=== PATIENT | male | born 1980 | race Caucasian/White ===

== ENCOUNTER → 2016-05-20 | Outpatient (CLI) | payer BC ==
[~2016-05-20] MED LIST: ALLOPURINOL100 MG PO; ANAPROX DS550 MG PO; FLEXERIL10 MG PO; HYDROCODONE BIT1 T11 PO; INDOMETHACIN25 M1 PO; KEFLEX500 MG PO; METFORMIN500 MG PO; MOTRIN800 MG PO; Motrin,Rufen400 MG PO; NKHM; VICODIN 500 MG-1 TAB PO
== END | disposition home or self-care (01) ==
LOC: ORTHO 02:51
DX: M25.561 Pain in right knee (principal)

== ENCOUNTER → 2017-02-25 | Outpatient (CLI) | payer BC | END | disposition home or self-care (01) | LOC: LAB 10:54 | DX: R79.89 Other specified abnormal findings of blood chemistry (principal); R53.83 Other fatigue ==

== ENCOUNTER 2017-08-23 21:15 | Emergency (ER) | payer BC ==
[~2017-08-23] VITALS: Wt 181.4 kg
[2017-08-23] MEDS ORDERED: CIPRO500 MG PO (22:20)
== END 2017-08-23 22:48 | disposition home or self-care (01) ==
LOC: ED 21:15
DX: S91.312A Laceration without foreign body, left foot, initial encounter (principal); I10 Essential (primary) hypertension; M10.9 Gout, unspecified; Z90.89 Acquired absence of other organs; Z79.899 Other long term (current) drug therapy; Z91.013 Allergy to seafood; W25.XXXA Contact with sharp glass, initial encounter; Y93.89 Activity, other specified; Y92.89 Other specified places as the place of occurrence of the external cause; Y99.9 Unspecified external cause status

== ENCOUNTER 2017-12-12 00:30 | Emergency (ER) | payer BC ==
[~2017-12-12] VITALS: Ht 172.7 cm; Wt 136.1 kg
[~2017-12-12 00:30] MED LIST changes: +CIPRO500 MG PO
== END 2017-12-12 03:12 | disposition home or self-care (01) ==
LOC: ED 00:30
DX: R07.81 Pleurodynia (principal); I10 Essential (primary) hypertension; Z91.013 Allergy to seafood; Z79.2 Long term (current) use of antibiotics; Z79.84 Long term (current) use of oral hypoglycemic drugs; Z79.899 Other long term (current) drug therapy; Z98.890 Other specified postprocedural states; V89.2XXA Person injured in unspecified motor-vehicle accident, traffic, initial encounter; Y93.I9 Activity, other involving external motion; Y92.488 Other paved roadways as the place of occurrence of the external cause; Y99.8 Other external cause status

== ENCOUNTER → 2018-05-23 | Outpatient (CLI) | payer OTHER ==
--- NOTE | ~2018-05-23 | EKG ---
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
== END | disposition home or self-care (01) ==
LOC: CARD 13:00
DX: Z01.810 Encounter for preprocedural cardiovascular examination (principal)

== ENCOUNTER → 2020-04-29 | Outpatient (CLI) | payer OTHER ==
[2020-04-29 11:09] LABS: BASO % 0.4 % (0.0-1.0); EOS # 0.1 10*3/uL (0.0-0.4); EOS % 1.3 % (1.0-4.0); HEMATOCRIT 45.9 % (42.0-52.0); LYMPH # 1.8 10*3/uL (1.3-4.4); LYMPH % 23.8 % (27.0-41.0); MEAN CELL VOLUME 89.5 fl (80.0-94.0); MEAN CORPUSCULAR HGB 29.6 pg (27.0-31.0); MEAN CORPUSCULAR HGB CONC 33.1 g/dl (33.0-37.0); MEAN PLATELET VOLUME 10.5 fl (9.6-12.3); MONO # 0.5 10*3/uL (0.1-1.0); MONO % 6.8 % (3.0-9.0); NEUT # 5.1 10*3/uL (2.3-7.9); PLATELET COUNT AUTOMATED 190 10*3/uL (130-400); RED BLOOD COUNT 5.13 10*6/uL (4.50-5.90); RED CELL DISTRI WIDTH 12.6 % (0-14.5); RETICULOCYTE % 1.77 % (0.50-2.50); WHITE BLOOD COUNT 7.6 10*3/uL (4.8-10.8)
[2020-04-29 11:15] LABS: BILIRUBIN Negative (Negative); BLOOD Negative (Negative); CLARITY Clear (Clear); COLOR Yellow (Yellow); GLUCOSE 3+ (Negative); KETONE Negative (Negative); LEUKO ESTERASE Negative (Negative); NITRITE Negative (Negative); SPECIFIC GRAVITY >= 1.030 (1.001-1.030); UROBILINOGEN 0.2 E.U./dl (0.0-1.0)
[2020-04-29 11:38] LABS: EPITHELIAL CELLS 0-2; RBC 0-2 rbc/hpf (0-2); WBC 0-2 wbc/hpf (0-5)
[2020-04-29 11:50] LABS: ALBUMIN 4.1 gm/dl (3.1-4.5); ALKALINE PHOSPHATASE 70 U/L (45-117); BUN 13 mg/dl (7-24); CHLORIDE 102 mmol/L (98-107); CHOLESTEROL 169 mg/dL (<200); CPK 84 U/L (39-308); CREATININE 0.93 mg/dL (0.70-1.30); GAMMA GLUTAMYL TRANSPEPTIDASE 32 U/L (15-85); HDL CHOLESTEROL 35 mg/dl (40-60); IRON 131 ug/dL (65-175); LDL CHOLESTEROL 102 mg/dL (9-159); POTASSIUM 3.9 mmol/L (3.5-5.1); SGOT/AST 18 IU/L (3-35); SGPT/ALT 47 U/L (12-78); SODIUM 138 mmol/L (136-145); TOTAL IRON BINDING CAPACITY 384 ug/dl (250-450); TOTAL PROTEIN 8.4 gm/dL (6.4-8.2); TRIGLYCERIDES 159 mg/dl (<150); URIC ACID 6.2 mg/dL (3.5-7.2); VLDL CHOLESTEROL 32 mg/dL (6-40)
[2020-04-29 12:23] LABS: VITAMIN D, 25-HYDROXY 22.3 ng/mL (30-100)
[2020-04-29 12:24] LABS: FERRITIN 184.3 ng/mL (22.0-322.0)
== END | disposition home or self-care (01) ==
LOC: LAB 10:45
PROVIDERS: ATTEND Family Medicine
DX: E55.9 Vitamin D deficiency, unspecified (principal); E11.9 Type 2 diabetes mellitus without complications; R79.89 Other specified abnormal findings of blood chemistry; R53.83 Other fatigue; E78.5 Hyperlipidemia, unspecified; R74.8 Abnormal levels of other serum enzymes

== ENCOUNTER → 2021-07-16 | Outpatient (CLI) | payer OTHER ==
[2021-07-16 13:42] LABS: BASO % 0.3 % (0.0-1.0); EOS # 0.1 10*3/uL (0.0-0.4); EOS % 1.8 % (1.0-4.0); HEMATOCRIT 43.8 % (42.0-52.0); LYMPH # 1.8 10*3/uL (1.3-4.4); MEAN CELL VOLUME 89.6 fl (80.0-94.0); MEAN CORPUSCULAR HGB 29.7 pg (27.0-31.0); MEAN CORPUSCULAR HGB CONC 33.1 g/dl (33.0-37.0); MEAN PLATELET VOLUME 11.3 fl (9.6-12.3); MONO # 0.5 10*3/uL (0.1-1.0); MONO % 7.1 % (3.0-9.0); NEUT # 4.8 10*3/uL (2.3-7.9); NEUT % 65.8 % (47.0-73.0); PLATELET COUNT AUTOMATED 184 10*3/uL (130-400); RED BLOOD COUNT 4.89 10*6/uL (4.50-5.90); RED CELL DISTRI WIDTH 12.9 % (0-14.5); RETICULOCYTE % 1.99 % (0.50-2.50); WHITE BLOOD COUNT 7.3 10*3/uL (4.8-10.8)
[2021-07-16 14:21] LABS: FERRITIN 205.3 ng/mL (22.0-322.0); VITAMIN D, 25-HYDROXY 31.6 ng/mL (30-100)
[2021-07-16 14:52] LABS: ALKALINE PHOSPHATASE 59 U/L (45-117); BUN 12 mg/dl (7-24); CHLORIDE 106 mmol/L (98-107); CREATININE 0.83 mg/dL (0.70-1.30); POTASSIUM 4.3 mmol/L (3.5-5.1); SGOT/AST 27 IU/L (3-35); SGPT/ALT 56 U/L (12-78); SODIUM 140 mmol/L (136-145); TOTAL PROTEIN 7.2 gm/dL (6.4-8.2)
[2021-07-16 15:23] LABS: CHOLESTEROL 161 mg/dL (<200); GAMMA GLUTAMYL TRANSPEPTIDASE 40 U/L (15-85); IRON 77 ug/dL (65-175); LDL CHOLESTEROL 76 mg/dL (9-159); TOTAL IRON BINDING CAPACITY 347 ug/dl (250-450); TRIGLYCERIDES 277 mg/dl (<150)
== END | disposition home or self-care (01) ==
LOC: LAB 13:16
PROVIDERS: ATTEND Family Medicine
DX: E78.5 Hyperlipidemia, unspecified (principal); E55.9 Vitamin D deficiency, unspecified; R79.89 Other specified abnormal findings of blood chemistry; R53.83 Other fatigue; R74.8 Abnormal levels of other serum enzymes